=== PATIENT | male | born 1975 | race African-American/Black ===

== ENCOUNTER 2023-04-03 10:29 | Emergency (ER) | payer SELFPAY ==
[~2023-04-03] VITALS: Ht 175.3 cm; Wt 80.0 kg
[2023-04-03] MEDS ORDERED: HALOPERIDOL LACTATE 5MG/ML VIAL IM ONE (11:00)
[2023-04-03] MEDS ORDERED: LORAZEPAM 2MG/ML CPJ IM ONE (11:15)
[2023-04-03 11:56] LABS: BASOPHILS % 0.5 % (0.0-2.0); EOSINOPHILS % 0.5 % (0.0-5.0); HEMATOCRIT. 30.4 % (42.0-52.0); HEMOGLOBIN. 10.6 g/dL (14.0-18.0); LYMPHOCYTES % 11.1 % (20.0-50.0); MEAN CORPUSCULAR HEMOGLOBIN 31.7 pg (28.0-32.0); MEAN CORPUSCULAR VOLUME 90.8 fL (80.0-94.0); MEAN PLATELET VOLUME 7.9 fl (7.4-10.4); MONOCYTES % 8.1 % (2.0-8.0); NEUTROPHILS % 79.8 % (40.0-76.0); PLATELET 281 x1000/uL (130-400); RED BLOOD CELL COUNT 3.35 mill/uL (4.7-6.1); RED CELL DISTRIBUTION WIDTH 15.2 % (11.6-14.6)
[2023-04-03 12:04] LABS: CLARITY URINE CLEAR (CLEAR); COLOR URINE YELLOW (YELLOW); KETONES URINE NEGATIVE (NEGATIVE); LEUKOCYTE ESTERASE URINE TRACE (NEGATIVE); NITRITE URINE NEGATIVE (NEGATIVE); OCCULT BLOOD URINE NEGATIVE (NEGATIVE); PH URINE >=9.0 (4.5-8.0); PROTEIN URINE 1+ (NEGATIVE); SPECIFIC GRAVITY URINE 1.026 (1.005-1.030)
[2023-04-03 12:07] LABS: CHLORIDE 109 mEq/L (98-107); INR 1.1
[2023-04-03 12:16] LABS: CREATINE KINASE 461 IU/L (39-308); ETHANOL BLOOD < 10 mg/dL
[2023-04-03 12:38] LABS: *AMPHETAMINES SCREEN URINE NEGATIVE (NEGATIVE); *BARBITURATES SCREEN URINE NEGATIVE (NEGATIVE); *BENZODIAZEPINES SCREEN URINE NEGATIVE (NEGATIVE); *COCAINE SCREEN URINE NEGATIVE (NEGATIVE); CANNABINOID URINE SCREEN PRESUMTIVE POSITIVE (NEGATIVE); METHADONE URINE SCREEN NEGATIVE (NEGATIVE); OPIATES URINE SCREEN NEGATIVE (NEGATIVE); PHENCYCLIDINE URINE SCREEN NEGATIVE (NEGATIVE)
[2023-04-03] MEDS ORDERED: IOHEXOL-350 100 ML BOTTLE ONE (15:51)
[2023-04-03 21:17] VITALS: BP 146/90
== END 2023-04-03 21:21 | disposition home or self-care (01) ==
LOC: ER 10:38
DX: I82.402 Acute embolism and thrombosis of unspecified deep veins of left lower extremity (principal); F31.9 Bipolar disorder, unspecified; F20.9 Schizophrenia, unspecified; Z20.822 Contact with and (suspected) exposure to COVID-19
CPT/HCPCS: 36415; 70450; 71045; 71275; 80053; 80305; 80307; 80320; 80329; 81003; 82140; 82550; 82962; 83605; 83690; 83880; 84145; 84484; 85025; 85610; 87040; 87077; 87426; 93005; 93970; 96372; 99285; C9803; J1630; J2060; Q9967; Z7610; G0480